=== PATIENT | male | born 1950 | race African-American/Black ===

== ENCOUNTER 2018-07-19 05:11 | Emergency (ER) | payer OTHER ==
[~2018-07-19] VITALS: Ht 185.4 cm; Wt 119.0 kg
[2018-07-19] MEDS ORDERED: ONDANSETRON 4MG ODT PO ONE (10:30)
[2018-07-19] MEDS ORDERED: HYDROCODONE/ACETAMINOPHEN 5/325MG TABLET PO ONE (10:30)
[2018-07-19] MEDS ORDERED: OXYCODONE HCL/ACETAMINOPHEN 5/325MG TABLET PO ONE (13:15)
[2018-07-19 15:07] VITALS: BP 154/68
== END 2018-07-19 15:08 | disposition home or self-care (01) ==
LOC: ER 05:11
DX: S42.291A Other displaced fracture of upper end of right humerus, initial encounter for closed fracture (principal); C90.00 Multiple myeloma not having achieved remission; W01.0XXA Fall on same level from slipping, tripping and stumbling without subsequent striking against object, initial encounter; Y93.89 Activity, other specified; Y92.89 Other specified places as the place of occurrence of the external cause
CPT/HCPCS: 71045; 73030; 73060; 73080; 99284; Q0162; A4565

== ENCOUNTER 2019-10-23 21:20 | Inpatient (IN) | payer MEDICARE, OTHER ==
[~2019-10-23] VITALS: Ht 185.4 cm; Wt 106.6 kg
[2019-10-23] MEDS ORDERED: ASPIRIN 81MG TABLET PO ONE ×2 (22:00→23:00)
[2019-10-23] MEDS ORDERED: FUROSEMIDE 40MG/4ML VIAL IV ONE (22:00)
[2019-10-23] MEDS ORDERED: NITROGLYCERIN OINT 1GM/INCH UDPKT TD ONE (22:00)
[2019-10-23] MEDS ORDERED: NITROGLYCERIN 50MG PREMIX 250 ML IV ONE (22:30)
[2019-10-23 22:32] LABS: CHLORIDE 108 mEq/L (98-107)
[2019-10-23 22:36] LABS: INR 1.1; PARTIAL THROMBOPLASTIN TIME 24.7 sec (23.4-31.0); PROTHROMBIN TIME 11.4 sec (9.6-11.0)
[2019-10-23 22:40] LABS: BASOPHILS % 0.1 % (0.0-2.0); EOSINOPHILS % 0.2 % (0.0-5.0); HEMATOCRIT. 38.3 % (42.0-52.0); HEMOGLOBIN. 12.2 g/dL (14.0-18.0); LYMPHOCYTES % 7.4 % (20.0-50.0); MEAN CORPUSCULAR VOLUME 94.2 fL (80.0-94.0); MEAN PLATELET VOLUME 9.5 fl (7.4-10.4); MONOCYTES % 3.5 % (2.0-8.0); NEUTROPHILS % 88.8 % (40.0-76.0); PLATELET 298 x1000/uL (130-400); RED BLOOD CELL COUNT 4.06 mill/uL (4.7-6.1); RED CELL DISTRIBUTION WIDTH 17.9 % (11.6-14.6)
[2019-10-23 22:41] LABS: BG BASE EXCESS -8.8 mmol/L (-2.0-2.0); BG BILEVEL POS AIRWAY PRESSURE 15/5; BG CARBOXYHEMOGLOBIN 0.3 % (0.5-1.5); BG DEOXYHEMOGLOBIN 0.4 % (0.0-5.0); BG FRACTION INSPIRED OXYGEN 100; BG METHEMOGLOBIN 0.3 % (0.0-1.5); BG OXYGEN SATURATION 99.6 % (92.0-98.5); BG PCO2 57.1 mmHg (35.0-45.0); BG PH 7.163 (7.350-7.450); BG PO2 362.6 mmHg (75.0-100.0); BG SAMPLE SITE RIGHT BRACHIAL; BG TOTAL HEMOGLOBIN 11.7 g/dL (12.0-18.0); BG VENT MODE MASK - BIPAP
[2019-10-23] MEDS ORDERED: ENOXAPARIN 100MG/ML SYR SUBCUT ONE (23:00)
[2019-10-23] MEDS ORDERED: MORPHINE SULFATE 4 MG/ML CPJ (NOT FOR IM USE) IV ONE (23:00)
[2019-10-23] MEDS ORDERED: ENOXAPARIN 100MG/ML SYR SUBCUT SCH (23:15)
[2019-10-23] MEDS ORDERED: ALBUTEROL 6.7GM HFA INHALER ORI STA (23:25)
[2019-10-24] MEDS ORDERED: CLONIDINE 0.1MG TABLET PO PRN ×2 (00:15→15:15)
[2019-10-24] MEDS ORDERED: DEXTROSE 50% WATER 50ML SYRINGE IV PRN ×2 (00:15→15:15)
[2019-10-24] MEDS ORDERED: ONDANSETRON HCL 4MG/2ML INJ IV PRN ×2 (00:15→15:30)
[2019-10-24] MEDS ORDERED: MAGNESIUM/ALUMINUM HYDROXIDE/SIMETHICONE 30ML UDC PO PRN ×2 (00:15→15:30)
[2019-10-24] MEDS ORDERED: HYDRALAZINE 20MG/ML VIAL IV PRN (00:15)
[2019-10-24] MEDS ORDERED: IPRATROPIUM/ALBUTEROL 0.5-3(2.5)MG/3ML NEB NEB PRN ×2 (00:15→15:30)
[2019-10-24] MEDS ORDERED: DOCUSATE SODIUM 100MG CAPSULE PO PRN ×2 (00:15→15:15)
[2019-10-24] MEDS ORDERED: DIPHENHYDRAMINE 50MG/ML VIAL IV PRN ×2 (00:15→15:15)
[2019-10-24] MEDS ORDERED: LORAZEPAM 2MG/ML CPJ IV PRN ×2 (00:15→15:30)
[2019-10-24] MEDS ORDERED: ACETAMINOPHEN 325MG TABLET PO PRN ×2 (00:15→15:15)
[2019-10-24] MEDS ORDERED: GUAIFENESIN 200MG/10ML SUGAR FREE UDC PO PRN ×2 (00:15→15:15)
[2019-10-24] MEDS ORDERED: MORPHINE SULFATE 2 MG/ML CPJ (NOT FOR IM USE) IV PRN ×2 (00:15→15:30)
[2019-10-24 01:41] LABS: CLARITY URINE CLEAR (CLEAR); COLOR URINE YELLOW (YELLOW); KETONES URINE NEGATIVE (NEGATIVE); LEUKOCYTE ESTERASE URINE NEGATIVE (NEGATIVE); NITRITE URINE NEGATIVE (NEGATIVE); OCCULT BLOOD URINE NEGATIVE (NEGATIVE); PROTEIN URINE TRACE (NEGATIVE); SPECIFIC GRAVITY URINE 1.017 (1.005-1.030); UROBILINOGEN URINE 0.2 E.U./dL (0.2-1.0)
[2019-10-24] MEDS: SODIUM CHLORIDE 0.9% INJ 3ML FLUSH IVF SCH ×2 (06:48→23:19)
[2019-10-24] MEDS: INSULIN LISPRO 100 UNITS/ML SUBCUT SCH ×4 (08:20→22:42)
[2019-10-24 09:31] LABS: BG BASE EXCESS -2.9 mmol/L (-2.0-2.0); BG CARBOXYHEMOGLOBIN 0.3 % (0.5-1.5); BG DEOXYHEMOGLOBIN 3.6 % (0.0-5.0); BG FRACTION INSPIRED OXYGEN 40; BG HCO3 ACT 21.7 mmol/L (22.0-26.0); BG METHEMOGLOBIN 0.1 % (0.0-1.5); BG OXYGEN SATURATION 96.4 % (92.0-98.5); BG PCO2 36.9 mmHg (35.0-45.0); BG PH 7.388 (7.350-7.450); BG PO2 89.1 mmHg (75.0-100.0); BG SAMPLE SITE RIGHT BRACHIAL; BG TOTAL HEMOGLOBIN 10.2 g/dL (12.0-18.0); BG VENT MODE NASAL CANNULA
[2019-10-24] MEDS: BLOOD SUGAR DIAGNOSTIC STRIP TEST SCH ×4 (09:40→22:42)
[2019-10-24] MEDS: AMLODIPINE 5MG TABLET PO SCH (12:16)
[2019-10-24] MEDS: ENOXAPARIN 120MG/0.8ML SYR SUBCUT SCH (13:35)
[2019-10-24] MEDS ORDERED: FUROSEMIDE 40MG/4ML VIAL IVP NR (15:15)
[2019-10-24] MEDS: ATORVASTATIN CALCIUM 10MG TABLET PO SCH (23:19)
[2019-10-25] MEDS: ENOXAPARIN 120MG/0.8ML SYR SUBCUT SCH (01:28)
[2019-10-25 04:38] LABS: HEMOGLOBIN. 9.6 g/dL (14.0-18.0); MEAN CORPUSCULAR HEMOGLOBIN 30.3 pg (28.0-32.0); MEAN CORPUSCULAR VOLUME 91.1 fL (80.0-94.0); MEAN PLATELET VOLUME 8.1 fl (7.4-10.4); PLATELET 163 x1000/uL (130-400); RED BLOOD CELL COUNT 3.18 mill/uL (4.7-6.1); RED CELL DISTRIBUTION WIDTH 17.8 % (11.6-14.6)
[2019-10-25 04:45] LABS: CHLORIDE 107 mEq/L (98-107)
[2019-10-25 04:51] LABS: LDL CHOLESTEROL 50 mg/dL (5-100)
[2019-10-25 04:53] LABS: HDL CHOLESTEROL 45 mg/dL (40-59)
[2019-10-25 07:30] LABS: PLATELET ESTIMATE NORMAL
[2019-10-25] MEDS: BLOOD SUGAR DIAGNOSTIC STRIP TEST SCH ×2 (08:30→09:00)
[2019-10-25] MEDS: INSULIN LISPRO 100 UNITS/ML SUBCUT SCH ×3 (08:45→21:00)
[2019-10-25] MEDS: ASPIRIN 81MG EC TABLET PO SCH (08:45)
[2019-10-25] MEDS: SODIUM CHLORIDE 0.9% INJ 3ML FLUSH IVF SCH (22:00)
[2019-10-25] MEDS: LEVOFLOXACIN 500MG PREMIX 100 ML IV SCH (23:19)
[2019-10-26] MEDS: ATORVASTATIN CALCIUM 10MG TABLET PO SCH ×2 (01:11→21:30)
[2019-10-26] MEDS ORDERED: CARB15DR EACHEYE (02:45)
[2019-10-26] MEDS ORDERED: CHOL40002 PO (02:45)
[2019-10-26] MEDS ORDERED: DEXT1TAB49 PO (02:45)
[2019-10-26] MEDS ORDERED: METF-816 MT (02:45)
[2019-10-26] MEDS ORDERED: BRIM5DRO6 EACHEYE (02:45)
[2019-10-26] MEDS ORDERED: MAGN200T5 PO (02:45)
[2019-10-26] MEDS ORDERED: DORZ10DR17 OP (02:45)
[2019-10-26] MEDS ORDERED: ASPI-1488 PO (03:05)
[2019-10-26] MEDS ORDERED: CARV12.545 MT (03:05)
[2019-10-26] MEDS ORDERED: FURO80TA3 PO (03:05)
[2019-10-26] MEDS ORDERED: TAMS-11 PO (03:05)
[2019-10-26] MEDS ORDERED: MULT-230 MT (03:05)
[2019-10-26] MEDS ORDERED: ATOR40TA70 MT (03:05)
[2019-10-26] MEDS ORDERED: DOCU250C69 MT (03:05)
[2019-10-26] MEDS ORDERED: ISOS20TA57 PO (03:05)
[2019-10-26] MEDS ORDERED: DEXA4TAB PO (03:05)
[2019-10-26] MEDS ORDERED: OMEP20CA14 PO (03:05)
[2019-10-26] MEDS ORDERED: SPIR25TA6 PO (03:05)
[2019-10-26] MEDS ORDERED: LISI-186 PO (03:05)
[2019-10-26] MEDS ORDERED: HYDR453.3 TP (03:05)
[2019-10-26 03:54] LABS: HEMATOCRIT. 27.2 % (42.0-52.0); HEMOGLOBIN. 9.2 g/dL (14.0-18.0); MEAN CORPUSCULAR HEMOGLOBIN 30.8 pg (28.0-32.0); MEAN CORPUSCULAR VOLUME 91.1 fL (80.0-94.0); MEAN PLATELET VOLUME 8.9 fl (7.4-10.4); PLATELET 132 x1000/uL (130-400); RED BLOOD CELL COUNT 2.98 mill/uL (4.7-6.1); RED CELL DISTRIBUTION WIDTH 17.2 % (11.6-14.6)
[2019-10-26 03:56] LABS: CHLORIDE 107 mEq/L (98-107)
[2019-10-26] MEDS: ASPIRIN 81MG EC TABLET PO SCH (08:00)
[2019-10-26] MEDS: CLOPIDOGREL 75MG TABLET PO SCH (09:00)
[2019-10-26 10:17] LABS: PLATELET ESTIMATE NORMAL
[2019-10-26] MEDS: BLOOD SUGAR DIAGNOSTIC STRIP TEST SCH ×3 (11:30→21:09)
[2019-10-26 13:00] VITALS: BP 131/72
[2019-10-26] MEDS: AMLODIPINE 5MG TABLET PO SCH (14:16)
[2019-10-26] MEDS: PANTOPRAZOLE SODIUM 40 MG/VIAL IV SCH (14:16)
[2019-10-26] MEDS: SODIUM CHLORIDE 0.9% INJ 3ML FLUSH IVF SCH ×2 (14:16→21:34)
[2019-10-26] MEDS: INSULIN LISPRO 100 UNITS/ML SUBCUT SCH ×3 (14:17→21:32)
[2019-10-26 16:00] VITALS: BP 99/47
[2019-10-26 20:00] VITALS: BP 123/70
[2019-10-26] MEDS: LEVOFLOXACIN 500MG PREMIX 100 ML IV SCH (21:30)
[2019-10-27] VITALS: BP 123/67
[2019-10-27 04:00] VITALS: BP 126/70
[2019-10-27] MEDS: BLOOD SUGAR DIAGNOSTIC STRIP TEST SCH ×4 (06:38→21:33)
[2019-10-27] MEDS: SODIUM CHLORIDE 0.9% INJ 3ML FLUSH IVF SCH ×3 (06:39→21:43)
[2019-10-27 07:44] LABS: HEMATOCRIT. 28.1 % (42.0-52.0); HEMOGLOBIN. 9.4 g/dL (14.0-18.0); MEAN CORPUSCULAR HEMOGLOBIN 30.3 pg (28.0-32.0); MEAN CORPUSCULAR VOLUME 91.1 fL (80.0-94.0); MEAN PLATELET VOLUME 8.6 fl (7.4-10.4); PLATELET 136 x1000/uL (130-400); RED BLOOD CELL COUNT 3.09 mill/uL (4.7-6.1); RED CELL DISTRIBUTION WIDTH 17.7 % (11.6-14.6)
[2019-10-27 08:00] VITALS: BP 144/67
[2019-10-27 08:06] LABS: CHLORIDE 106 mEq/L (98-107)
[2019-10-27] MEDS: PANTOPRAZOLE SODIUM 40 MG/VIAL IV SCH (08:22)
[2019-10-27] MEDS: AMLODIPINE 5MG TABLET PO SCH (08:22)
[2019-10-27] MEDS: ASPIRIN 81MG EC TABLET PO SCH (08:22)
[2019-10-27] MEDS: CLOPIDOGREL 75MG TABLET PO SCH (08:22)
[2019-10-27] MEDS: INSULIN LISPRO 100 UNITS/ML SUBCUT SCH ×4 (08:22→21:43)
[2019-10-27 09:29] LABS: PLATELET ESTIMATE NORMAL
[2019-10-27 12:00] VITALS: BP 122/64
[2019-10-27] MEDS: LISINOPRIL 2.5MG TABLET PO SCH (12:19)
[2019-10-27] MEDS: CARVEDILOL 6.25 MG TABLET PO SCH ×2 (12:19→21:44)
[2019-10-27 16:00] VITALS: BP 124/71
[2019-10-27 20:00] VITALS: BP 113/63
[2019-10-27] MEDS: ATORVASTATIN CALCIUM 10MG TABLET PO SCH (21:44)
[2019-10-27] MEDS: LEVOFLOXACIN 500MG PREMIX 100 ML IV SCH (21:45)
[2019-10-28] VITALS: BP 114/61
[2019-10-28 04:00] VITALS: BP 121/36
[2019-10-28 05:09] LABS: BASOPHILS % 0.2 % (0.0-2.0); EOSINOPHILS % 3.1 % (0.0-5.0); HEMATOCRIT. 28.9 % (42.0-52.0); HEMOGLOBIN. 9.7 g/dL (14.0-18.0); LYMPHOCYTES % 8.7 % (20.0-50.0); MEAN CORPUSCULAR HEMOGLOBIN 30.1 pg (28.0-32.0); MEAN CORPUSCULAR VOLUME 89.6 fL (80.0-94.0); MEAN PLATELET VOLUME 8.1 fl (7.4-10.4); PLATELET 145 x1000/uL (130-400); RED BLOOD CELL COUNT 3.22 mill/uL (4.7-6.1); RED CELL DISTRIBUTION WIDTH 17.2 % (11.6-14.6)
[2019-10-28 05:14] LABS: CHLORIDE 106 mEq/L (98-107)
[2019-10-28] MEDS: BLOOD SUGAR DIAGNOSTIC STRIP TEST SCH (05:48)
[2019-10-28 05:55] VITALS: BP 105/43
[2019-10-28] MEDS: SODIUM CHLORIDE 0.9% INJ 3ML FLUSH IVF SCH (06:04)
[2019-10-28] MEDS: INSULIN LISPRO 100 UNITS/ML SUBCUT SCH (06:05)
[2019-10-28 08:00] VITALS: BP 119/57
[2019-10-28] MEDS ORDERED: REGADENOSON 0.4 MG/5 ML IV ONE (08:15)
[2019-10-28] MEDS: LISINOPRIL 2.5MG TABLET PO SCH ×2 (08:42→09:00)
[2019-10-28] MEDS: PANTOPRAZOLE SODIUM 40 MG/VIAL IV SCH (08:43)
[2019-10-28] MEDS: AMLODIPINE 5MG TABLET PO SCH ×2 (08:43→09:00)
[2019-10-28] MEDS: CLOPIDOGREL 75MG TABLET PO SCH (08:43)
[2019-10-28] MEDS: CARVEDILOL 6.25 MG TABLET PO SCH ×2 (08:43→09:00)
[2019-10-28] MEDS: ASPIRIN 81MG EC TABLET PO SCH (08:43)
== END 2019-10-28 11:00 | disposition left against medical advice (07) | DRG 280 ==
LOC: ER 21:20 → UNDOADMIN 23:24 → MICUSO 23:24 → EDBEDREQSVC 10-24 21:15 → EDBEDREQTM 10-24 21:15 → EDBEDREQ 10-25 07:32 → 5WST 10-26 12:34
PROVIDERS: ADMIT Internal Medicine; ATTEND Internal Medicine
PROC: 5A09357 Assistance with Respiratory Ventilation, Less than 24 Consecutive Hours, Continuous Positive Airway Pressure (ICD-10-PCS; principal; 2019-10-23)
DX: I21.4 Non-ST elevation (NSTEMI) myocardial infarction (principal); J96.01 Acute respiratory failure with hypoxia; J18.9 Pneumonia, unspecified organism; J96.02 Acute respiratory failure with hypercapnia; E87.2 Acidosis; I13.0 Hypertensive heart and chronic kidney disease with heart failure and stage 1 through stage 4 chronic kidney disease, or unspecified chronic kidney disease; I50.42 Chronic combined systolic (congestive) and diastolic (congestive) heart failure; Z53.29 Procedure and treatment not carried out because of patient's decision for other reasons; G47.33 Obstructive sleep apnea (adult) (pediatric); I44.7 Left bundle-branch block, unspecified; R00.0 Tachycardia, unspecified; E66.09 Other obesity due to excess calories; N18.9 Chronic kidney disease, unspecified; E11.22 Type 2 diabetes mellitus with diabetic chronic kidney disease; Z20.828 Contact with and (suspected) exposure to other viral communicable diseases; Z82.3 Family history of stroke; Z82.49 Family history of ischemic heart disease and other diseases of the circulatory system; I25.2 Old myocardial infarction; Z95.5 Presence of coronary angioplasty implant and graft; Z68.31 Body mass index [BMI] 31.0-31.9, adult
CPT/HCPCS: 36415; 36600; 71045; 80048; 80053; 80061; 82375; 82805; 82962; 83605; 83880; 84145; 84484; 85025; 93005; 93306; 94640; 94660; 99291; C9113; J1650; J1815; J1940; J1956; J2270; J3490; U0003-CS